=== PATIENT | male | born 1955 | race Caucasian/White ===

== ENCOUNTER 2020-12-24 17:39 | Inpatient (IN) ==
[2020-12-24] MEDS ORDERED: MORPHINE 4 MG/1 ML VIAL IV PRN (20:47)
[2020-12-24] MEDS ORDERED: DEXTROSE 50% 25 GM/50 ML VIAL IV PRN ×2 (20:47)
[2020-12-24] MEDS ORDERED: GLUCAGON 1 MG VIAL IM PRN ×2 (20:47)
[2020-12-24] MEDS ORDERED: ACETAMINOPHEN 325 MG TABLET PO PRN (20:47)
[2020-12-24] MEDS ORDERED: ONDANSETRON 4 MG/2 ML VIAL IV PRN (20:47)
[2020-12-24] MEDS ORDERED: QUEtiapine 25 MG TABLET PO SCH (21:00)
[2020-12-24] MEDS: SPIRONOLACTONE 25 MG TABLET PO SCH (21:43)
[2020-12-24] MEDS: GABAPENTIN 400 MG CAPSULE PO SCH (21:43)
[2020-12-24] MEDS: INSULIN REGULAR 100 UNIT/ML SUBCUT SCH (22:20)
[2020-12-25] MEDS: PIPERACILLIN/TAZOBACTAM 3,375 MG in SODIUM CHLORIDE 0.9% 100 ML IV SCH ×2 (00:48→09:20)
[2020-12-25 07:13] LABS: Basophils % 0.5 % (0.0-0.8); Eosinophils # 0.3 10*3/uL (0.0-0.87); Hematocrit 33.7 VOL% (42.0-52.0); Hemoglobin 11.6 GM/DL (14.0-18.0); Immature Granulocytes % 0.3 %; Immature Granulocytes Absolute 0.02 #; Lymphocytes # 0.8 10*3/uL (1.4-4.0); Lymphocytes % 13.6 % (21.2-54.2); Mean Corpuscular HGB Conc 34.4 GM/DL (32-36); Mean Corpuscular Volume 93.6 FL (87-102); Mean Platelet Volume 9.4 FL (9.6-12.0); Neutrophils % 73.6 % (38.7-73.9); Platelet Count 169 T/CUMM (130-400); Red Cell Distribution Width 12.9 % (9.3-17.3)
[2020-12-25 07:41] LABS: Albumin 2.7 G/DL (3.4-5.0); Bilirubin,Total 1.4 MG/DL (0.2-1.0); Calcium 8.3 MG/DL (8.5-10.1); Osmolality,Calculated 271.4 MOS/KG (273-304); Potassium 3.8 MMOL/L (3.5-5.1); Total Protein 6.8 G/DL (6.4-8.2)
[2020-12-25] MEDS ORDERED: PANTOPRAZOLE 40 MG TABLET PO SCH (09:00)
[2020-12-25] MEDS ORDERED: FUROSEMIDE 40 MG TABLET PO SCH (09:00)
[2020-12-25] MEDS ORDERED: SERTRALINE 50 MG TABLET PO SCH (09:00)
[2020-12-25] MEDS: INSULIN REGULAR 100 UNIT/ML SUBCUT SCH ×2 (09:19→12:04)
[2020-12-25] MEDS: GABAPENTIN 400 MG CAPSULE PO SCH (09:20)
[2020-12-25] MEDS: SPIRONOLACTONE 25 MG TABLET PO SCH (09:20)
[2020-12-25 11:33] VITALS: BP 135/95
[2020-12-25] MEDS ORDERED: ENOXAPARIN 40 MG/0.4 ML SYRINGE SUBCUT SCH (21:00)
== END 2020-12-25 14:25 | disposition home or self-care (01) | DRG 300 ==
LOC: N.3E 19:18
PROVIDERS: ADMIT Internal Medicine; ATTEND Internal Medicine

== ENCOUNTER 2021-02-09 15:08 | Inpatient (IN) ==
[2021-02-09] MEDS ORDERED: BISACODYL 5 MG TABLET PO PRN (15:59)
[2021-02-09] MEDS ORDERED: DEXTROSE 50% 25 GM/50 ML VIAL IV PRN (15:59)
[2021-02-09] MEDS ORDERED: GLUCAGON 1 MG VIAL IM PRN (15:59)
[2021-02-09] MEDS ORDERED: ONDANSETRON 4 MG/2 ML VIAL IV PRN (15:59)
[2021-02-09] MEDS ORDERED: HYDROmorphone 2 MG/1 ML VIAL IV PRN ×2 (15:59)
[2021-02-09] MEDS ORDERED: ALBUTEROL/IPRATROPIUM 3 ML NEB RESP TX PRN (15:59)
[2021-02-09] MEDS ORDERED: VANCOMYCIN INJ 1,000 MG in SODIUM CHLORIDE 0.9% 500 ML IV SCH (16:00)
[2021-02-09 16:51] LABS: Basophils % 0.5 % (0.0-0.8); Eosinophils # 0.2 10*3/uL (0.0-0.87); Eosinophils % 2.2 % (0.00-10.9); Hematocrit 30.3 VOL% (42.0-52.0); Hemoglobin 10.7 GM/DL (14.0-18.0); Immature Granulocytes % 0.7 %; Immature Granulocytes Absolute 0.05 #; Lymphocytes % 12.6 % (21.2-54.2); Mean Corpuscular HGB Conc 35.3 GM/DL (32-36); Mean Corpuscular Volume 87.6 FL (87-102); Mean Platelet Volume 8.7 FL (9.6-12.0); Monocytes % 6.4 % (1.7-12.7); Neutrophils % 77.6 % (38.7-73.9); Platelet Count 243 T/CUMM (130-400); Red Blood Count 3.46 MC/CUMM (3.8-5.5); Red Cell Distribution Width 13.4 % (9.3-17.3); White Blood Count 7.6 T/CUMM (4-12)
[2021-02-09 17:15] LABS: Calcium 8.3 MG/DL (8.5-10.1); Osmolality,Calculated 273.2 MOS/KG (273-304)
[2021-02-09 17:21] LABS: Potassium 2.1 MMOL/L (3.5-5.1)
[2021-02-09] MEDS ORDERED: POTASSIUM CHLORIDE 20 MEQ TABLET PO ONE ×2 (17:52→22:29)
[2021-02-09] MEDS: LACTATED RINGERS 1,000 ML IV SCH (18:02)
[2021-02-09] MEDS: PIPERACILLIN/TAZOBACTAM 3,375 MG in SODIUM CHLORIDE 0.9% 100 ML IV SCH ×2 (18:02→23:58)
[2021-02-09] MEDS: INSULIN LISPRO 100 UNIT/ML SUBCUT SCH (18:02)
[2021-02-09] MEDS: VANCOMYCIN INJ 2,000 MG in SODIUM CHLORIDE 0.9% 500 ML IV SCH (21:01)
[2021-02-09] MEDS: ACETAMINOPHEN 325 MG TABLET PO PRN (21:05)
[2021-02-09] MEDS ORDERED: LOPERAMIDE 2 MG CAPSULE PO PRN (22:30)
[2021-02-09] MEDS ORDERED: LOPERAMIDE 2 MG CAPSULE PO ONE (22:30)
[2021-02-09] MEDS ORDERED: MAGNESIUM SULF RIDER 4 GM/100 ML PREMIX IV ONE (22:33)
[2021-02-10] MEDS: POTASSIUM CHLORIDE RIDER 10 MEQ/100 ML PREMIX IV SCH ×4 (00:15→03:15)
[2021-02-10] MEDS: ZINC OXIDE PASTE 113 GM TUBE TOP PRN (02:13)
[2021-02-10 06:45] LABS: Basophils % 0.6 % (0.0-0.8); Eosinophils # 0.2 10*3/uL (0.0-0.87); Eosinophils % 2.8 % (0.00-10.9); Hematocrit 30.3 VOL% (42.0-52.0); Hemoglobin 10.5 GM/DL (14.0-18.0); Immature Granulocytes % 0.6 %; Immature Granulocytes Absolute 0.04 #; Lymphocytes # 0.8 10*3/uL (1.4-4.0); Lymphocytes % 11.3 % (21.2-54.2); Mean Corpuscular HGB Conc 34.7 GM/DL (32-36); Mean Corpuscular Volume 88.1 FL (87-102); Mean Platelet Volume 8.6 FL (9.6-12.0); Monocytes % 5.2 % (1.7-12.7); Neutrophils % 79.5 % (38.7-73.9); Platelet Count 217 T/CUMM (130-400); Red Blood Count 3.44 MC/CUMM (3.8-5.5); Red Cell Distribution Width 13.4 % (9.3-17.3); White Blood Count 7.1 T/CUMM (4-12)
[2021-02-10 07:18] LABS: Calcium 7.9 MG/DL (8.5-10.1); Osmolality,Calculated 281.5 MOS/KG (273-304); Potassium 3.2 MMOL/L (3.5-5.1)
[2021-02-10] MEDS: LACTATED RINGERS 1,000 ML IV SCH ×2 (07:46→12:37)
[2021-02-10] MEDS ORDERED: LIDOCAINE 1% 20 ML VIAL ONE (08:14)
[2021-02-10] MEDS ORDERED: BUPIVACAINE MPF 0.25% 30 ML VIAL ONE (08:14)
[2021-02-10] MEDS ORDERED: propofoL 200 MG/20 ML VIAL IV ONE (08:27)
[2021-02-10] MEDS ORDERED: ONDANSETRON 4 MG/2 ML VIAL ONE (08:27)
[2021-02-10] MEDS ORDERED: LIDOCAINE 2% 5 ML VIAL ONE (08:27)
[2021-02-10] MEDS ORDERED: DEXMEDETOMIDINE 200 MCG/2 ML VIAL ONE (08:27)
[2021-02-10] MEDS ORDERED: MIDAZOLAM 2 MG/2 ML VIAL ONE (08:28)
[2021-02-10] MEDS ORDERED: KETOROLAC 30 MG/1 ML VIAL ONE (09:06)
[2021-02-10] MEDS ORDERED: ACETAMINOPHEN INJ 1,000 MG/100 ML VIAL IV ONE (09:06)
[2021-02-10] MEDS: INSULIN LISPRO 100 UNIT/ML SUBCUT SCH ×3 (09:10→17:11)
[2021-02-10] MEDS: VANCOMYCIN INJ 2,000 MG in SODIUM CHLORIDE 0.9% 500 ML IV SCH ×2 (12:36→22:36)
[2021-02-10] MEDS: PIPERACILLIN/TAZOBACTAM 3,375 MG in SODIUM CHLORIDE 0.9% 100 ML IV SCH ×2 (12:36→17:11)
[2021-02-10] MEDS: POTASSIUM CHLORIDE 20 MEQ TABLET PO PRN ×3 (14:53→22:36)
[2021-02-10] MEDS: PANTOPRAZOLE 40 MG TABLET PO SCH (14:53)
[2021-02-10] MEDS: GABAPENTIN 400 MG CAPSULE PO SCH ×2 (14:53→21:19)
[2021-02-10] MEDS: MENTHOL/ZINC OXIDE OINT 71 GM JAR TOP SCH (19:14)
[2021-02-10 21:00] LABS: ABG Base Excess -1.9 MMOL/L (-2.5-2.5); ABG HCO3 22.7 MMOL/L (20-26); ABG Oxygen Saturation 91.9 % (95-100); ABG PCO2 51.1 MM HG (35-48); ABG PO2 67.3 MM HG (80-95); ABG TCO2 22.7 MMOL/L (23-27)
[2021-02-10] MEDS ORDERED: FUROSEMIDE 40 MG/4 ML VIAL IV ONE ×2 (21:09→21:12)
[2021-02-10] MEDS ORDERED: IPRATROPIUM 500 MCG/2.5 ML NEB RESP TX PRN (21:11)
[2021-02-10] MEDS: SPIRONOLACTONE 25 MG TABLET PO SCH (21:19)
[2021-02-10 21:54] LABS: Calcium 7.9 MG/DL (8.5-10.1); Osmolality,Calculated 281.5 MOS/KG (273-304); Potassium 3.8 MMOL/L (3.5-5.1)
[2021-02-11] MEDS: MENTHOL/ZINC OXIDE OINT 71 GM JAR TOP SCH ×3 (00:05→21:02)
[2021-02-11] MEDS: PIPERACILLIN/TAZOBACTAM 3,375 MG in SODIUM CHLORIDE 0.9% 100 ML IV SCH ×3 (01:16→15:09)
[2021-02-11] MEDS: GABAPENTIN 400 MG CAPSULE PO SCH ×3 (09:55→21:02)
[2021-02-11] MEDS: FUROSEMIDE 40 MG TABLET PO SCH (09:55)
[2021-02-11] MEDS: SPIRONOLACTONE 25 MG TABLET PO SCH ×2 (09:55→21:02)
[2021-02-11] MEDS: PANTOPRAZOLE 40 MG TABLET PO SCH (09:55)
[2021-02-11] MEDS: VANCOMYCIN INJ 2,000 MG in SODIUM CHLORIDE 0.9% 500 ML IV SCH (09:56)
[2021-02-11] MEDS: ZINC OXIDE PASTE 113 GM TUBE TOP PRN (10:00)
[2021-02-11] MEDS: INSULIN LISPRO 100 UNIT/ML SUBCUT SCH ×4 (10:01→17:39)
[2021-02-11 15:08] LABS: ABG Base Excess -0.1 MMOL/L (-2.5-2.5); ABG HCO3 24.3 MMOL/L (20-26); ABG Oxygen Saturation 98.3 % (95-100); ABG PCO2 46.4 MM HG (35-48); ABG PH 7.353 (7.35-7.45); ABG TCO2 23.3 MMOL/L (23-27); Allen Test Positive; Pt O2 Delivery Device BIPAP
[2021-02-11] MEDS ORDERED: FUROSEMIDE 40 MG/4 ML VIAL IV ONE (15:09)
[2021-02-11] MEDS: methylPREDNISolone SOD SUC 40 MG/1 ML VIAL IV SCH (15:11)
[2021-02-11] MEDS ORDERED: [UNRECOGNIZED DRUG - OTHER] SUBCUT SCH (17:00)
[2021-02-11] MEDS ORDERED: INSULIN ASPART U 100 UNIT/ML SUBCUT SCH (17:00)
[2021-02-11 17:50] LABS: Basophils % 0.3 % (0.0-0.8); Eosinophils # 0.1 10*3/uL (0.0-0.87); Eosinophils % 1.3 % (0.00-10.9); Hematocrit 31.8 VOL% (42.0-52.0); Hemoglobin 10.6 GM/DL (14.0-18.0); Immature Granulocytes % 0.3 %; Immature Granulocytes Absolute 0.03 #; Lymphocytes # 0.4 10*3/uL (1.4-4.0); Lymphocytes % 4.3 % (21.2-54.2); Mean Corpuscular HGB Conc 33.3 GM/DL (32-36); Mean Corpuscular Volume 90.9 FL (87-102); Mean Platelet Volume 8.7 FL (9.6-12.0); Neutrophils % 90.8 % (38.7-73.9); Platelet Count 254 T/CUMM (130-400); Red Cell Distribution Width 13.9 % (9.3-17.3); White Blood Count 9.8 T/CUMM (4-12)
[2021-02-11 18:04] LABS: Albumin 2.8 G/DL (3.4-5.0); Calcium 7.9 MG/DL (8.5-10.1); High Sensitive Troponin I* 47.7 ng/L (0-78); Osmolality,Calculated 281.5 MOS/KG (273-304); Potassium 3.6 MMOL/L (3.5-5.1)
[2021-02-11 18:56] LABS: Lymphocytes 4 % (20-55); Segmented Neutrophils 93 % (50-85); Total Cells Counted 100
[2021-02-12] MEDS: methylPREDNISolone SOD SUC 40 MG/1 ML VIAL IV SCH ×4 (00:30→22:58)
[2021-02-12] MEDS: PIPERACILLIN/TAZOBACTAM 3,375 MG in SODIUM CHLORIDE 0.9% 100 ML IV SCH ×4 (00:43→23:20)
[2021-02-12] MEDS: LACTATED RINGERS 1,000 ML IV SCH (06:25)
[2021-02-12 06:28] LABS: Basophils % 0.1 % (0.0-0.8); Hemoglobin 10.1 GM/DL (14.0-18.0); Immature Granulocytes % 0.6 %; Immature Granulocytes Absolute 0.04 #; Lymphocytes # 0.4 10*3/uL (1.4-4.0); Lymphocytes % 5.9 % (21.2-54.2); Mean Corpuscular HGB Conc 33.7 GM/DL (32-36); Mean Platelet Volume 8.9 FL (9.6-12.0); Monocytes % 1.5 % (1.7-12.7); Neutrophils % 91.9 % (38.7-73.9); Platelet Count 208 T/CUMM (130-400); Red Blood Count 3.26 MC/CUMM (3.8-5.5); Red Cell Distribution Width 13.6 % (9.3-17.3); White Blood Count 7.3 T/CUMM (4-12)
[2021-02-12 06:46] LABS: Osmolality,Calculated 285.4 MOS/KG (273-304); Potassium 3.6 MMOL/L (3.5-5.1)
[2021-02-12 06:52] LABS: Band Neutrophils 1 % (0-10); Hypochromasia Slight; Lymphocytes 8 % (20-55); Microcytosis 1+; Platelet Estimate Normal; Segmented Neutrophils 89 % (50-85); Total Cells Counted 100
[2021-02-12] MEDS ORDERED: MAGNESIUM SULF RIDER 4 GM/100 ML PREMIX IV ONE (07:42)
[2021-02-12] MEDS: SPIRONOLACTONE 25 MG TABLET PO SCH ×2 (08:18→20:48)
[2021-02-12] MEDS: PANTOPRAZOLE 40 MG TABLET PO SCH (08:19)
[2021-02-12] MEDS: GABAPENTIN 400 MG CAPSULE PO SCH ×3 (08:19→20:49)
[2021-02-12] MEDS: INSULIN LISPRO 100 UNIT/ML SUBCUT SCH ×4 (08:20→17:11)
[2021-02-12] MEDS: FUROSEMIDE 40 MG/4 ML VIAL IV SCH ×2 (08:26→16:34)
[2021-02-12] MEDS: FUROSEMIDE 40 MG TABLET PO SCH (08:28)
[2021-02-12] MEDS: VANCOMYCIN INJ 2,000 MG in SODIUM CHLORIDE 0.9% 500 ML IV SCH (11:04)
[2021-02-12] MEDS: MENTHOL/ZINC OXIDE OINT 71 GM JAR TOP SCH ×2 (11:25→21:07)
[2021-02-12] MEDS: ENOXAPARIN 40 MG/0.4 ML SYRINGE SUBCUT SCH (13:05)
[2021-02-13 05:32] LABS: Basophils % 0.1 % (0.0-0.8); Hematocrit 29.4 VOL% (42.0-52.0); Hemoglobin 10.3 GM/DL (14.0-18.0); Immature Granulocytes % 0.6 %; Immature Granulocytes Absolute 0.05 #; Lymphocytes # 0.4 10*3/uL (1.4-4.0); Mean Corpuscular Volume 90.2 FL (87-102); Monocytes % 2.3 % (1.7-12.7); Platelet Count 187 T/CUMM (130-400); Red Blood Count 3.26 MC/CUMM (3.8-5.5); Red Cell Distribution Width 13.3 % (9.3-17.3); White Blood Count 7.8 T/CUMM (4-12)
[2021-02-13 05:53] LABS: Calcium 8.3 MG/DL (8.5-10.1); Potassium 3.2 MMOL/L (3.5-5.1)
[2021-02-13 06:34] LABS: Hypochromasia Slight; Lymphocytes 4 % (20-55); Microcytosis 1+; Platelet Estimate Adequate; Segmented Neutrophils 91 % (50-85); Total Cells Counted 100
[2021-02-13] MEDS: methylPREDNISolone SOD SUC 40 MG/1 ML VIAL IV SCH ×3 (07:50→20:38)
[2021-02-13] MEDS: PIPERACILLIN/TAZOBACTAM 3,375 MG in SODIUM CHLORIDE 0.9% 100 ML IV SCH ×3 (08:25→23:31)
[2021-02-13] MEDS: PANTOPRAZOLE 40 MG TABLET PO SCH (08:25)
[2021-02-13] MEDS: GABAPENTIN 400 MG CAPSULE PO SCH ×3 (08:25→20:37)
[2021-02-13] MEDS: POTASSIUM CHLORIDE 20 MEQ TABLET PO SCH ×5 (08:25→23:32)
[2021-02-13] MEDS: SPIRONOLACTONE 25 MG TABLET PO SCH ×2 (08:25→20:37)
[2021-02-13] MEDS: FUROSEMIDE 40 MG/4 ML VIAL IV SCH (08:30)
[2021-02-13] MEDS: INSULIN LISPRO 100 UNIT/ML SUBCUT SCH ×5 (08:32→18:30)
[2021-02-13] MEDS: FUROSEMIDE 40 MG TABLET PO SCH (08:33)
[2021-02-13] MEDS: VANCOMYCIN INJ 2,000 MG in SODIUM CHLORIDE 0.9% 500 ML IV SCH (12:08)
[2021-02-13] MEDS: ENOXAPARIN 40 MG/0.4 ML SYRINGE SUBCUT SCH (12:09)
[2021-02-13] MEDS: MENTHOL/ZINC OXIDE OINT 71 GM JAR TOP SCH ×2 (12:10→20:37)
[2021-02-14] MEDS: ACETAMINOPHEN 325 MG TABLET PO PRN (04:00)
[2021-02-14 06:56] LABS: Calcium 8.3 MG/DL (8.5-10.1); Osmolality,Calculated 289.4 MOS/KG (273-304); Potassium 3.6 MMOL/L (3.5-5.1)
[2021-02-14] MEDS: INSULIN LISPRO 100 UNIT/ML SUBCUT SCH ×3 (09:08→12:32)
[2021-02-14] MEDS: PANTOPRAZOLE 40 MG TABLET PO SCH (09:09)
[2021-02-14] MEDS: FUROSEMIDE 40 MG TABLET PO SCH (09:09)
[2021-02-14] MEDS: GABAPENTIN 400 MG CAPSULE PO SCH (09:09)
[2021-02-14] MEDS: MENTHOL/ZINC OXIDE OINT 71 GM JAR TOP SCH (09:10)
[2021-02-14] MEDS: methylPREDNISolone SOD SUC 40 MG/1 ML VIAL IV SCH (09:10)
[2021-02-14] MEDS: PIPERACILLIN/TAZOBACTAM 3,375 MG in SODIUM CHLORIDE 0.9% 100 ML IV SCH (09:13)
[2021-02-14] MEDS ORDERED: LEVOFLOXACIN 750 MG TABLET PO SCH (10:00)
[2021-02-14] MEDS: SPIRONOLACTONE 25 MG TABLET PO SCH (11:35)
[2021-02-14] MEDS: ENOXAPARIN 40 MG/0.4 ML SYRINGE SUBCUT SCH (11:36)
[2021-02-14 11:58] VITALS: BP 149/75
== END 2021-02-14 14:41 | disposition home health service (06) | DRG 981 ==
LOC: N.5E 15:29 → N.ICU 02-11 14:00 → N.3E 02-13 18:05
PROVIDERS: ADMIT Surgery; ATTEND Surgery

== ENCOUNTER 2021-02-25 21:27 | Inpatient (IN) ==
[2021-02-25] MEDS ORDERED: FUROSEMIDE 40 MG/4 ML VIAL IV STA (21:40)
[2021-02-25] MEDS ORDERED: ASPIRIN 325 MG TABLET PO STA (21:40)
[2021-02-25 21:58] LABS: Basophils # 0.1 10*3/uL (0.0-0.2); Basophils % 0.4 % (0.0-0.8); Eosinophils # 0.1 10*3/uL (0.0-0.87); Eosinophils % 0.7 % (0.00-10.9); Hematocrit 32.1 VOL% (42.0-52.0); Immature Granulocytes % 0.7 %; Immature Granulocytes Absolute 0.09 #; Lymphocytes # 0.6 10*3/uL (1.4-4.0); Lymphocytes % 4.3 % (21.2-54.2); Mean Corpuscular HGB Conc 34.3 GM/DL (32-36); Mean Corpuscular Volume 89.4 FL (87-102); Mean Platelet Volume 9.2 FL (9.6-12.0); Monocytes % 5.5 % (1.7-12.7); Neutrophils % 88.4 % (38.7-73.9); Platelet Count 140 T/CUMM (130-400); Red Blood Count 3.59 MC/CUMM (3.8-5.5); Red Cell Distribution Width 14.4 % (9.3-17.3); White Blood Count 13.8 T/CUMM (4-12)
[2021-02-25 22:09] LABS: INR 1.1; PT Patient Result 12.2 SECS (10.5-12.0)
[2021-02-25 22:17] LABS: Eosinophils 3 % (0-10); Lymphocytes 11 % (20-55); Platelet Estimate Normal; Segmented Neutrophils 81 % (50-85); Total Cells Counted 100
[2021-02-25 22:20] LABS: Albumin 2.6 G/DL (3.4-5.0); Bilirubin,Total 1.5 MG/DL (0.2-1.0); Calcium 6.9 MG/DL (8.5-10.1); Osmolality,Calculated 274.7 MOS/KG (273-304); Potassium 2.6 MMOL/L (3.5-5.1); Total Protein 6.3 G/DL (6.4-8.2)
[2021-02-25] MEDS ORDERED: POTASSIUM CHLORIDE 20 MEQ TABLET PO STA (22:27)
[2021-02-25] MEDS ORDERED: MAGNESIUM SULF RIDER 4 GM/100 ML PREMIX IV PRN (22:45)
[2021-02-25] MEDS ORDERED: POTASSIUM CHLORIDE RIDER 10 MEQ/100 ML PREMIX IV PRN (22:45)
[2021-02-25] MEDS ORDERED: hydrALAZINE 20 MG/1 ML VIAL IV PRN (22:47)
[2021-02-25] MEDS ORDERED: MORPHINE 4 MG/1 ML VIAL IV PRN (22:47)
[2021-02-25] MEDS ORDERED: ZALEPLON 5 MG CAPSULE PO PRN (22:47)
[2021-02-25] MEDS ORDERED: ONDANSETRON 4 MG/2 ML VIAL IV PRN (22:47)
[2021-02-25] MEDS ORDERED: NICOTINE 21 MG/24 HR PATCH TRANSDERM PRN (22:47)
[2021-02-25] MEDS ORDERED: BISACODYL 5 MG TABLET PO PRN (22:47)
[2021-02-25] MEDS ORDERED: ACETAMINOPHEN 325 MG TABLET PO PRN (22:47)
[2021-02-25] MEDS ORDERED: DEXTROSE 50% 25 GM/50 ML VIAL IV PRN ×2 (22:47→23:00)
[2021-02-25] MEDS ORDERED: diphenhydrAMINE CAP 25 MG CAPSULE PO PRN (22:47)
[2021-02-25] MEDS ORDERED: GLUCAGON 1 MG VIAL IM PRN ×2 (22:47→23:00)
[2021-02-26] MEDS: ALBUTEROL/IPRATROPIUM 3 ML NEB RESP TX SCH ×3 (00:05→21:40)
[2021-02-26 05:12] LABS: Basophils # 0.1 10*3/uL (0.0-0.2); Basophils % 0.7 % (0.0-0.8); Eosinophils % 0.2 % (0.00-10.9); Hematocrit 28.7 VOL% (42.0-52.0); Hemoglobin 9.8 GM/DL (14.0-18.0); Immature Granulocytes % 0.5 %; Immature Granulocytes Absolute 0.05 #; Lymphocytes # 0.8 10*3/uL (1.4-4.0); Lymphocytes % 7.7 % (21.2-54.2); Mean Corpuscular HGB Conc 34.1 GM/DL (32-36); Mean Corpuscular Volume 90.3 FL (87-102); Mean Platelet Volume 9.9 FL (9.6-12.0); Monocytes % 7.3 % (1.7-12.7); Neutrophils % 83.6 % (38.7-73.9); Platelet Count 131 T/CUMM (130-400); Red Blood Count 3.18 MC/CUMM (3.8-5.5); Red Cell Distribution Width 14.5 % (9.3-17.3); White Blood Count 10.3 T/CUMM (4-12)
[2021-02-26 05:45] LABS: Hypochromasia 1+; Microcytosis 1+
[2021-02-26 05:50] LABS: Calcium 6.7 MG/DL (8.5-10.1); Osmolality,Calculated 276.7 MOS/KG (273-304); Potassium 2.6 MMOL/L (3.5-5.1)
[2021-02-26] MEDS: ENOXAPARIN 40 MG/0.4 ML SYRINGE SUBCUT SCH (09:35)
[2021-02-26] MEDS: PANTOPRAZOLE 40 MG TABLET PO SCH (09:35)
[2021-02-26] MEDS: POTASSIUM CHLORIDE 20 MEQ TABLET PO PRN (09:35)
[2021-02-26] MEDS: INSULIN LISPRO 100 UNIT/ML SUBCUT SCH ×4 (09:37→20:16)
[2021-02-26] MEDS: FUROSEMIDE 40 MG/4 ML VIAL IV SCH ×2 (09:37→16:27)
[2021-02-26] MEDS: SPIRONOLACTONE 25 MG TABLET PO SCH (10:00)
[2021-02-26] MEDS: POTASSIUM CHLORIDE 20 MEQ TABLET PO SCH ×3 (14:00→18:23)
[2021-02-27] MEDS: ALBUTEROL/IPRATROPIUM 3 ML NEB RESP TX SCH ×4 (02:36→19:25)
[2021-02-27 05:34] LABS: Osmolality,Calculated 273.2 MOS/KG (273-304); Potassium 3.1 MMOL/L (3.5-5.1)
[2021-02-27] MEDS: INSULIN LISPRO 100 UNIT/ML SUBCUT SCH ×4 (08:10→20:15)
[2021-02-27] MEDS: FUROSEMIDE 40 MG/4 ML VIAL IV SCH ×2 (10:46→17:24)
[2021-02-27] MEDS: ENOXAPARIN 40 MG/0.4 ML SYRINGE SUBCUT SCH (10:47)
[2021-02-27] MEDS: SPIRONOLACTONE 25 MG TABLET PO SCH (10:48)
[2021-02-27] MEDS: PANTOPRAZOLE 40 MG TABLET PO SCH (10:48)
[2021-02-27] MEDS: POTASSIUM CHLORIDE 20 MEQ TABLET PO SCH ×3 (11:10→20:15)
[2021-02-27] MEDS: MAGNESIUM OXIDE 400 MG TABLET PO SCH ×2 (17:23→20:14)
[2021-02-27 19:29] LABS: Bilirubin,Urine Negative (Negative); Blood, Urine Small mg/dL (Negative); Glucose,Urine (UA) Negative (Negative); Hyaline Casts,Urine 1 /LPF (0-3); Ketones,Urine Negative (Negative); Mucus,Urine Occasional /LPF (Occasional); Nitrite,Urine Negative (Negative); Protein,Urine Negative; RBC,Urine 1 /HPF (0-4); Squamous Epithelial Cell,Urine Occasional /HPF (0-10); Urine Appearance CLEAR (Clear); Urine Color Yellow (Yellow); Urine Specific Gravity 1.013 (1.001-1.035); Urine Urobilinogen < 2.0 EU/DL (0.2-1.0)
[2021-02-28] MEDS: ALBUTEROL/IPRATROPIUM 3 ML NEB RESP TX SCH ×3 (03:19→14:19)
[2021-02-28 05:08] LABS: Osmolality,Calculated 266.7 MOS/KG (273-304); Potassium 3.3 MMOL/L (3.5-5.1)
[2021-02-28] MEDS: INSULIN LISPRO 100 UNIT/ML SUBCUT SCH ×4 (09:30→21:43)
[2021-02-28] MEDS: FUROSEMIDE 40 MG/4 ML VIAL IV SCH ×3 (09:31→18:01)
[2021-02-28] MEDS: PANTOPRAZOLE 40 MG TABLET PO SCH (09:31)
[2021-02-28] MEDS: MAGNESIUM OXIDE 400 MG TABLET PO SCH ×3 (09:31→21:44)
[2021-02-28] MEDS: ENOXAPARIN 40 MG/0.4 ML SYRINGE SUBCUT SCH (09:31)
[2021-02-28] MEDS: SPIRONOLACTONE 25 MG TABLET PO SCH (09:31)
[2021-02-28] MEDS ORDERED: ALBUTEROL/IPRATROPIUM 3 ML NEB RESP TX PRN (16:28)
[2021-02-28] MEDS ORDERED: SKIN HEALING OINT (AQUAPHOR) 50 GM TUBE TOP PRN (16:46)
[2021-02-28] MEDS: MENTHOL/ZINC OXIDE OINT 71 GM JAR TOP SCH ×2 (18:02→21:44)
[2021-02-28] MEDS: SODIUM HYPOCHLORITE 0.25% IRRIG 473 ML BOTTLE TOP SCH ×2 (18:02→22:53)
[2021-02-28] MEDS: POTASSIUM CHLORIDE 20 MEQ TABLET PO PRN (21:44)
[2021-03-01 05:17] LABS: Basophils # 0.1 10*3/uL (0.0-0.2); Basophils % 1.2 % (0.0-0.8); Eosinophils # 0.3 10*3/uL (0.0-0.87); Eosinophils % 4.3 % (0.00-10.9); Hemoglobin 9.9 GM/DL (14.0-18.0); Immature Granulocytes % 0.4 %; Immature Granulocytes Absolute 0.03 #; Lymphocytes # 0.8 10*3/uL (1.4-4.0); Lymphocytes % 12.3 % (21.2-54.2); Mean Corpuscular Volume 92.3 FL (87-102); Mean Platelet Volume 9.7 FL (9.6-12.0); Monocytes % 5.6 % (1.7-12.7); Neutrophils % 76.2 % (38.7-73.9); Platelet Count 184 T/CUMM (130-400); Red Blood Count 3.25 MC/CUMM (3.8-5.5); Red Cell Distribution Width 14.4 % (9.3-17.3); White Blood Count 6.8 T/CUMM (4-12)
[2021-03-01 05:31] LABS: Calcium 7.2 MG/DL (8.5-10.1); Potassium 3.3 MMOL/L (3.5-5.1)
[2021-03-01 05:36] LABS: Eosinophils 4 % (0-10); Hypochromasia 1+; Lymphocytes 12 % (20-55); Microcytosis 1+; Platelet Estimate Adequate; Segmented Neutrophils 80 % (50-85); Total Cells Counted 100
[2021-03-01] MEDS: MAGNESIUM OXIDE 400 MG TABLET PO SCH ×3 (10:10→22:41)
[2021-03-01] MEDS: SPIRONOLACTONE 25 MG TABLET PO SCH (10:10)
[2021-03-01] MEDS: POTASSIUM CHLORIDE 20 MEQ TABLET PO PRN (10:10)
[2021-03-01] MEDS: PANTOPRAZOLE 40 MG TABLET PO SCH (10:10)
[2021-03-01] MEDS: INSULIN LISPRO 100 UNIT/ML SUBCUT SCH ×4 (10:10→22:58)
[2021-03-01] MEDS: ENOXAPARIN 40 MG/0.4 ML SYRINGE SUBCUT SCH (10:11)
[2021-03-01] MEDS: SODIUM HYPOCHLORITE 0.25% IRRIG 473 ML BOTTLE TOP SCH ×2 (10:11→22:59)
[2021-03-01] MEDS: FUROSEMIDE 40 MG/4 ML VIAL IV SCH ×2 (10:11→17:55)
[2021-03-01] MEDS: MENTHOL/ZINC OXIDE OINT 71 GM JAR TOP SCH ×2 (10:12→22:58)
[2021-03-01] MEDS: guaiFENesin/DM ER 600-30 MG TABLET PO PRN ×2 (17:55→22:50)
[2021-03-02 04:33] LABS: Basophils # 0.1 10*3/uL (0.0-0.2); Basophils % 0.9 % (0.0-0.8); Eosinophils # 0.3 10*3/uL (0.0-0.87); Eosinophils % 4.1 % (0.00-10.9); Hematocrit 29.9 VOL% (42.0-52.0); Hemoglobin 10.1 GM/DL (14.0-18.0); Immature Granulocytes % 0.6 %; Immature Granulocytes Absolute 0.04 #; Lymphocytes # 0.8 10*3/uL (1.4-4.0); Lymphocytes % 11.5 % (21.2-54.2); Mean Corpuscular HGB Conc 33.8 GM/DL (32-36); Mean Corpuscular Volume 90.9 FL (87-102); Mean Platelet Volume 9.2 FL (9.6-12.0); Monocytes % 6.4 % (1.7-12.7); Neutrophils % 76.5 % (38.7-73.9); Platelet Count 179 T/CUMM (130-400); Red Blood Count 3.29 MC/CUMM (3.8-5.5); Red Cell Distribution Width 14.2 % (9.3-17.3)
[2021-03-02 04:59] LABS: Eosinophils 3 % (0-10); Hypochromasia Slight; Lymphocytes 16 % (20-55); Microcytosis Slight; Platelet Estimate Adequate; Segmented Neutrophils 74 % (50-85); Total Cells Counted 100
[2021-03-02 05:09] LABS: Calcium 7.3 MG/DL (8.5-10.1); Potassium 3.4 MMOL/L (3.5-5.1)
[2021-03-02] MEDS: MAGNESIUM OXIDE 400 MG TABLET PO SCH ×3 (09:56→22:58)
[2021-03-02] MEDS: SPIRONOLACTONE 25 MG TABLET PO SCH (09:56)
[2021-03-02] MEDS: POTASSIUM CHLORIDE 20 MEQ TABLET PO PRN ×3 (09:56→16:05)
[2021-03-02] MEDS: PANTOPRAZOLE 40 MG TABLET PO SCH (09:56)
[2021-03-02] MEDS: ENOXAPARIN 40 MG/0.4 ML SYRINGE SUBCUT SCH (09:56)
[2021-03-02] MEDS: MENTHOL/ZINC OXIDE OINT 71 GM JAR TOP SCH ×2 (09:57→22:57)
[2021-03-02] MEDS: SODIUM HYPOCHLORITE 0.25% IRRIG 473 ML BOTTLE TOP SCH ×2 (09:57→22:59)
[2021-03-02] MEDS: FUROSEMIDE 40 MG/4 ML VIAL IV SCH ×2 (10:06→16:05)
[2021-03-02] MEDS: INSULIN LISPRO 100 UNIT/ML SUBCUT SCH ×4 (11:42→22:59)
[2021-03-02] MEDS: MAGNESIUM SULF RIDER 2 GM/50 ML PREMIX IV PRN (13:57)
[2021-03-02] MEDS: GABAPENTIN 400 MG CAPSULE PO SCH (22:58)
[2021-03-03] MEDS: INSULIN LISPRO 100 UNIT/ML SUBCUT SCH ×4 (08:32→20:50)
[2021-03-03] MEDS: PANTOPRAZOLE 40 MG TABLET PO SCH (10:43)
[2021-03-03] MEDS: GABAPENTIN 400 MG CAPSULE PO SCH ×3 (10:43→20:49)
[2021-03-03] MEDS: SPIRONOLACTONE 25 MG TABLET PO SCH (10:43)
[2021-03-03] MEDS: MAGNESIUM OXIDE 400 MG TABLET PO SCH ×3 (10:43→20:49)
[2021-03-03] MEDS: SODIUM HYPOCHLORITE 0.25% IRRIG 473 ML BOTTLE TOP SCH ×2 (10:44→20:49)
[2021-03-03] MEDS: ENOXAPARIN 40 MG/0.4 ML SYRINGE SUBCUT SCH (10:44)
[2021-03-03] MEDS: MENTHOL/ZINC OXIDE OINT 71 GM JAR TOP SCH ×2 (10:44→20:49)
[2021-03-03] MEDS: FUROSEMIDE 40 MG/4 ML VIAL IV SCH ×2 (10:47→15:12)
[2021-03-04 05:53] LABS: Calcium 7.5 MG/DL (8.5-10.1); Osmolality,Calculated 271.1 MOS/KG (273-304); Potassium 3.2 MMOL/L (3.5-5.1)
[2021-03-04] MEDS ORDERED: LIDOCAINE 1%/EPI INJ 20 ML VIAL ONE (08:19)
[2021-03-04] MEDS ORDERED: BUPIVACAINE MPF 0.25% 30 ML VIAL ONE (08:19)
[2021-03-04] MEDS: INSULIN LISPRO 100 UNIT/ML SUBCUT SCH ×4 (08:26→21:56)
[2021-03-04] MEDS: SPIRONOLACTONE 25 MG TABLET PO SCH (10:02)
[2021-03-04] MEDS: PANTOPRAZOLE 40 MG TABLET PO SCH (10:02)
[2021-03-04] MEDS: GABAPENTIN 400 MG CAPSULE PO SCH ×3 (10:02→21:50)
[2021-03-04] MEDS: MAGNESIUM OXIDE 400 MG TABLET PO SCH ×3 (10:02→21:50)
[2021-03-04] MEDS: ENOXAPARIN 40 MG/0.4 ML SYRINGE SUBCUT SCH (10:03)
[2021-03-04] MEDS: MENTHOL/ZINC OXIDE OINT 71 GM JAR TOP SCH ×2 (10:12→21:55)
[2021-03-04] MEDS: SODIUM HYPOCHLORITE 0.25% IRRIG 473 ML BOTTLE TOP SCH ×2 (10:12→21:55)
[2021-03-04] MEDS: FUROSEMIDE 40 MG/4 ML VIAL IV SCH ×2 (10:12→15:49)
[2021-03-04] MEDS: MAGNESIUM SULF RIDER 2 GM/50 ML PREMIX IV PRN (10:13)
[2021-03-04] MEDS ORDERED: DEXTROSE 50% 25 GM/50 ML VIAL IV PRN (13:23)
[2021-03-04] MEDS: POTASSIUM CHLORIDE 20 MEQ TABLET PO PRN (15:45)
[2021-03-05 04:58] LABS: Basophils # 0.1 10*3/uL (0.0-0.2); Basophils % 0.7 % (0.0-0.8); Eosinophils # 0.4 10*3/uL (0.0-0.87); Eosinophils % 5.1 % (0.00-10.9); Hematocrit 30.1 VOL% (42.0-52.0); Hemoglobin 9.7 GM/DL (14.0-18.0); Immature Granulocytes % 0.7 %; Immature Granulocytes Absolute 0.05 #; Lymphocytes # 1.1 10*3/uL (1.4-4.0); Lymphocytes % 15.3 % (21.2-54.2); Mean Corpuscular HGB Conc 32.2 GM/DL (32-36); Mean Corpuscular Volume 93.2 FL (87-102); Mean Platelet Volume 9.1 FL (9.6-12.0); Monocytes % 7.4 % (1.7-12.7); Neutrophils % 70.8 % (38.7-73.9); Platelet Count 188 T/CUMM (130-400); Red Blood Count 3.23 MC/CUMM (3.8-5.5); Red Cell Distribution Width 13.9 % (9.3-17.3); White Blood Count 7.2 T/CUMM (4-12)
[2021-03-05 05:41] LABS: Osmolality,Calculated 270.2 MOS/KG (273-304); Potassium 3.3 MMOL/L (3.5-5.1)
[2021-03-05] MEDS: INSULIN LISPRO 100 UNIT/ML SUBCUT SCH ×4 (07:46→22:13)
[2021-03-05] MEDS: GABAPENTIN 400 MG CAPSULE PO SCH ×3 (08:46→22:09)
[2021-03-05] MEDS: PANTOPRAZOLE 40 MG TABLET PO SCH (08:46)
[2021-03-05] MEDS: POTASSIUM CHLORIDE 20 MEQ TABLET PO PRN ×3 (08:46→13:28)
[2021-03-05] MEDS: MAGNESIUM OXIDE 400 MG TABLET PO SCH ×3 (08:46→22:09)
[2021-03-05] MEDS: SPIRONOLACTONE 25 MG TABLET PO SCH (08:46)
[2021-03-05] MEDS: ENOXAPARIN 40 MG/0.4 ML SYRINGE SUBCUT SCH (08:47)
[2021-03-05] MEDS: MENTHOL/ZINC OXIDE OINT 71 GM JAR TOP SCH ×2 (08:51→22:19)
[2021-03-05] MEDS: SODIUM HYPOCHLORITE 0.25% IRRIG 473 ML BOTTLE TOP SCH ×2 (08:51→22:19)
[2021-03-05] MEDS: FUROSEMIDE 40 MG/4 ML VIAL IV SCH ×2 (08:51→15:06)
[2021-03-06 05:59] LABS: Basophils # 0.1 10*3/uL (0.0-0.2); Basophils % 0.6 % (0.0-0.8); Eosinophils # 0.4 10*3/uL (0.0-0.87); Eosinophils % 4.8 % (0.00-10.9); Hematocrit 29.7 VOL% (42.0-52.0); Hemoglobin 9.6 GM/DL (14.0-18.0); Immature Granulocytes % 0.5 %; Immature Granulocytes Absolute 0.04 #; Lymphocytes # 1.1 10*3/uL (1.4-4.0); Lymphocytes % 12.6 % (21.2-54.2); Mean Corpuscular HGB Conc 32.3 GM/DL (32-36); Mean Corpuscular Volume 92.2 FL (87-102); Mean Platelet Volume 8.7 FL (9.6-12.0); Monocytes % 6.9 % (1.7-12.7); Neutrophils % 74.6 % (38.7-73.9); Platelet Count 190 T/CUMM (130-400); Red Blood Count 3.22 MC/CUMM (3.8-5.5); Red Cell Distribution Width 13.7 % (9.3-17.3); White Blood Count 8.4 T/CUMM (4-12)
[2021-03-06 06:31] LABS: Calcium 7.9 MG/DL (8.5-10.1); Osmolality,Calculated 268.4 MOS/KG (273-304); Potassium 3.8 MMOL/L (3.5-5.1)
[2021-03-06] MEDS: GABAPENTIN 400 MG CAPSULE PO SCH ×3 (08:44→21:26)
[2021-03-06] MEDS: MAGNESIUM OXIDE 400 MG TABLET PO SCH ×3 (08:44→21:26)
[2021-03-06] MEDS: PANTOPRAZOLE 40 MG TABLET PO SCH (08:44)
[2021-03-06] MEDS: INSULIN LISPRO 100 UNIT/ML SUBCUT SCH ×4 (08:44→20:51)
[2021-03-06] MEDS: ENOXAPARIN 40 MG/0.4 ML SYRINGE SUBCUT SCH (08:45)
[2021-03-06] MEDS: POTASSIUM CHLORIDE 20 MEQ TABLET PO PRN (08:45)
[2021-03-06] MEDS: SPIRONOLACTONE 25 MG TABLET PO SCH (08:45)
[2021-03-06] MEDS: MENTHOL/ZINC OXIDE OINT 71 GM JAR TOP SCH ×2 (08:49→21:27)
[2021-03-06] MEDS: FUROSEMIDE 40 MG/4 ML VIAL IV SCH ×2 (08:49→16:14)
[2021-03-06] MEDS: SODIUM HYPOCHLORITE 0.25% IRRIG 473 ML BOTTLE TOP SCH ×2 (08:50→21:28)
[2021-03-07] MEDS ORDERED: BUPIVACAINE MPF 0.25% 30 ML VIAL ONE (09:27)
[2021-03-07] MEDS ORDERED: LIDOCAINE 1%/EPI INJ 20 ML VIAL ONE (09:27)
[2021-03-07] MEDS ORDERED: propofoL 200 MG/20 ML VIAL IV ONE (09:28)
[2021-03-07] MEDS ORDERED: LIDOCAINE 2% 5 ML VIAL ONE (09:28)
[2021-03-07] MEDS ORDERED: ETOMIDATE 40 MG/20 ML VIAL IV ONE (09:28)
[2021-03-07] MEDS ORDERED: MIDAZOLAM 2 MG/2 ML VIAL ONE (09:28)
[2021-03-07] MEDS ORDERED: DEXMEDETOMIDINE 200 MCG/2 ML VIAL ONE (09:28)
[2021-03-07] MEDS ORDERED: DEXAMETHASONE 4 MG/1 ML VIAL ONE (09:35)
[2021-03-07] MEDS ORDERED: ONDANSETRON 4 MG/2 ML VIAL ONE (09:35)
[2021-03-07] MEDS ORDERED: LIDOCAINE 1% 20 ML VIAL ONE (09:46)
[2021-03-07] MEDS ORDERED: KETOROLAC 30 MG/1 ML VIAL ONE (09:55)
[2021-03-07] MEDS ORDERED: ACETAMINOPHEN INJ 1,000 MG/100 ML VIAL IV ONE (09:55)
[2021-03-07] MEDS ORDERED: DEXTROSE 50% 25 GM/50 ML VIAL IV PRN (10:14)
[2021-03-07] MEDS ORDERED: PHENYLEPHRINE 1 MG/10 ML SYRINGE IV ONE (10:21)
[2021-03-07] MEDS: INSULIN LISPRO 100 UNIT/ML SUBCUT SCH ×4 (10:23→22:14)
[2021-03-07] MEDS: SODIUM HYPOCHLORITE 0.25% IRRIG 473 ML BOTTLE TOP SCH ×2 (10:24→22:02)
[2021-03-07] MEDS ORDERED: VANCOMYCIN INJ 1,000 MG in SODIUM CHLORIDE 0.9% 250 ML IV SCH (10:30)
[2021-03-07] MEDS: MAGNESIUM OXIDE 400 MG TABLET PO SCH ×3 (11:34→21:58)
[2021-03-07] MEDS: GABAPENTIN 400 MG CAPSULE PO SCH ×3 (11:34→21:59)
[2021-03-07] MEDS: FUROSEMIDE 40 MG/4 ML VIAL IV SCH ×2 (11:39→17:04)
[2021-03-07] MEDS: SPIRONOLACTONE 25 MG TABLET PO SCH ×2 (11:56→22:00)
[2021-03-07] MEDS: PANTOPRAZOLE 40 MG TABLET PO SCH (11:56)
[2021-03-07] MEDS: ENOXAPARIN 40 MG/0.4 ML SYRINGE SUBCUT SCH (12:05)
[2021-03-07] MEDS: PIPERACILLIN/TAZOBACTAM 3,375 MG in SODIUM CHLORIDE 0.9% 100 ML IV SCH ×2 (12:07→22:01)
[2021-03-07] MEDS: MENTHOL/ZINC OXIDE OINT 71 GM JAR TOP SCH ×2 (12:07→22:02)
[2021-03-07] MEDS: VANCOMYCIN INJ 1,750 MG in SODIUM CHLORIDE 0.9% 500 ML IV SCH (17:04)
[2021-03-08] MEDS: VANCOMYCIN INJ 1,750 MG in SODIUM CHLORIDE 0.9% 500 ML IV SCH (03:08)
[2021-03-08] MEDS: PIPERACILLIN/TAZOBACTAM 3,375 MG in SODIUM CHLORIDE 0.9% 100 ML IV SCH ×3 (05:18→18:25)
[2021-03-08 05:49] LABS: Calcium 8.3 MG/DL (8.5-10.1); Osmolality,Calculated 272.5 MOS/KG (273-304); Potassium 4.8 MMOL/L (3.5-5.1)
[2021-03-08] MEDS: INSULIN LISPRO 100 UNIT/ML SUBCUT SCH ×4 (10:05→22:22)
[2021-03-08] MEDS: ENOXAPARIN 40 MG/0.4 ML SYRINGE SUBCUT SCH (10:06)
[2021-03-08] MEDS: SPIRONOLACTONE 25 MG TABLET PO SCH ×2 (10:12→22:21)
[2021-03-08] MEDS: FUROSEMIDE 40 MG/4 ML VIAL IV SCH ×2 (10:12→16:55)
[2021-03-08] MEDS: MAGNESIUM OXIDE 400 MG TABLET PO SCH ×3 (10:13→22:21)
[2021-03-08] MEDS: PANTOPRAZOLE 40 MG TABLET PO SCH (10:13)
[2021-03-08] MEDS: MENTHOL/ZINC OXIDE OINT 71 GM JAR TOP SCH ×2 (10:13→22:21)
[2021-03-08] MEDS: SODIUM HYPOCHLORITE 0.25% IRRIG 473 ML BOTTLE TOP SCH ×2 (10:13→22:22)
[2021-03-08] MEDS: GABAPENTIN 400 MG CAPSULE PO SCH ×3 (10:13→22:20)
[2021-03-08] MEDS ORDERED: GENTAMICIN INJ 160 MG in SODIUM CHLORIDE 0.9% 100 ML IV SCH (10:30)
[2021-03-08] MEDS ORDERED: MORPHINE 2 MG/1 ML SYRINGE IV PRN (14:01)
[2021-03-08] MEDS: GENTAMICIN IV SCH (16:57)
[2021-03-08] MEDS: SODIUM CHLORIDE 0.9% IV SCH (16:57)
[2021-03-09] MEDS: PIPERACILLIN/TAZOBACTAM 3,375 MG in SODIUM CHLORIDE 0.9% 100 ML IV SCH ×2 (04:11→12:40)
[2021-03-09] MEDS: INSULIN LISPRO 100 UNIT/ML SUBCUT SCH ×4 (07:59→21:25)
[2021-03-09] MEDS: MAGNESIUM OXIDE 400 MG TABLET PO SCH ×3 (09:20→21:25)
[2021-03-09] MEDS: ENOXAPARIN 40 MG/0.4 ML SYRINGE SUBCUT SCH (09:21)
[2021-03-09] MEDS: PANTOPRAZOLE 40 MG TABLET PO SCH (09:21)
[2021-03-09] MEDS: GABAPENTIN 400 MG CAPSULE PO SCH ×3 (09:21→21:25)
[2021-03-09] MEDS: SPIRONOLACTONE 25 MG TABLET PO SCH ×2 (09:21→21:26)
[2021-03-09] MEDS: FUROSEMIDE 40 MG/4 ML VIAL IV SCH ×2 (09:27→16:42)
[2021-03-09] MEDS: MENTHOL/ZINC OXIDE OINT 71 GM JAR TOP SCH ×2 (09:30→21:25)
[2021-03-09] MEDS: SODIUM HYPOCHLORITE 0.25% IRRIG 473 ML BOTTLE TOP SCH ×2 (09:30→21:25)
[2021-03-09] MEDS: GENTAMICIN IV SCH (16:34)
[2021-03-09] MEDS: SODIUM CHLORIDE 0.9% IV SCH (16:34)
[2021-03-09] MEDS: MEROPENEM 500 MG in SODIUM CHLORIDE 0.9% 100 ML IV SCH ×2 (16:54→23:47)
[2021-03-09] MEDS ORDERED: TOBRAMYCIN INJ 480 MG in SODIUM CHLORIDE 0.9% 100 ML IV SCH (17:00)
[2021-03-10] MEDS: MEROPENEM 500 MG in SODIUM CHLORIDE 0.9% 100 ML IV SCH ×3 (05:55→16:45)
[2021-03-10] MEDS: INSULIN LISPRO 100 UNIT/ML SUBCUT SCH ×4 (08:13→21:49)
[2021-03-10] MEDS ORDERED: MIDAZOLAM 2 MG/2 ML VIAL ONE (08:30)
[2021-03-10] MEDS ORDERED: fentaNYL 100 MCG/2 ML VIAL ONE (08:30)
[2021-03-10] MEDS ORDERED: LIDOCAINE 2% 5 ML VIAL ONE (08:30)
[2021-03-10] MEDS ORDERED: propofoL 200 MG/20 ML VIAL IV ONE (08:31)
[2021-03-10] MEDS ORDERED: BUPIVACAINE MPF 0.25% 30 ML VIAL ONE (08:38)
[2021-03-10] MEDS ORDERED: LIDOCAINE 1%/EPI INJ 20 ML VIAL ONE (08:38)
[2021-03-10] MEDS ORDERED: ALBUTEROL/IPRATROPIUM 3 ML NEB RESP TX ONE (08:46)
[2021-03-10] MEDS ORDERED: LACTATED RINGERS 1,000 ML IV SCH (09:00)
[2021-03-10] MEDS ORDERED: LIDOCAINE 1% 20 ML VIAL ONE (09:03)
[2021-03-10] MEDS ORDERED: ETOMIDATE 40 MG/20 ML VIAL IV ONE (09:15)
[2021-03-10] MEDS: FUROSEMIDE 40 MG/4 ML VIAL IV SCH ×2 (10:48→15:27)
[2021-03-10] MEDS: GABAPENTIN 400 MG CAPSULE PO SCH ×3 (11:16→21:50)
[2021-03-10] MEDS: MAGNESIUM OXIDE 400 MG TABLET PO SCH ×3 (11:16→21:50)
[2021-03-10] MEDS: SPIRONOLACTONE 25 MG TABLET PO SCH ×2 (11:16→21:49)
[2021-03-10] MEDS: ENOXAPARIN 40 MG/0.4 ML SYRINGE SUBCUT SCH (11:17)
[2021-03-10] MEDS: PANTOPRAZOLE 40 MG TABLET PO SCH (11:17)
[2021-03-10] MEDS: SODIUM HYPOCHLORITE 0.25% IRRIG 473 ML BOTTLE TOP SCH ×2 (11:20→21:51)
[2021-03-10] MEDS: MENTHOL/ZINC OXIDE OINT 71 GM JAR TOP SCH ×2 (11:20→21:51)
[2021-03-10 13:47] LABS: Calcium 8.8 MG/DL (8.5-10.1); Osmolality,Calculated 272.2 MOS/KG (273-304); Potassium 4.8 MMOL/L (3.5-5.1)
[2021-03-10] MEDS: ZALEPLON 5 MG CAPSULE PO PRN (21:50)
[2021-03-11] MEDS: MEROPENEM 500 MG in SODIUM CHLORIDE 0.9% 100 ML IV SCH ×4 (00:09→17:00)
[2021-03-11 06:02] LABS: Basophils % 0.6 % (0.0-0.8); Eosinophils # 0.5 10*3/uL (0.0-0.87); Eosinophils % 7.6 % (0.00-10.9); Hematocrit 30.3 VOL% (42.0-52.0); Hemoglobin 9.5 GM/DL (14.0-18.0); Immature Granulocytes % 0.4 %; Immature Granulocytes Absolute 0.03 #; Lymphocytes # 0.9 10*3/uL (1.4-4.0); Mean Corpuscular HGB Conc 31.4 GM/DL (32-36); Mean Corpuscular Volume 94.7 FL (87-102); Mean Platelet Volume 8.6 FL (9.6-12.0); Neutrophils % 72.4 % (38.7-73.9); Platelet Count 254 T/CUMM (130-400); Red Cell Distribution Width 13.8 % (9.3-17.3); White Blood Count 7.2 T/CUMM (4-12)
[2021-03-11 06:45] LABS: Calcium 8.6 MG/DL (8.5-10.1); Potassium 4.1 MMOL/L (3.5-5.1)
[2021-03-11] MEDS: INSULIN LISPRO 100 UNIT/ML SUBCUT SCH ×4 (09:36→21:14)
[2021-03-11] MEDS: FUROSEMIDE 40 MG/4 ML VIAL IV SCH ×2 (09:45→16:00)
[2021-03-11] MEDS: SPIRONOLACTONE 25 MG TABLET PO SCH ×2 (09:45→21:12)
[2021-03-11] MEDS: MAGNESIUM OXIDE 400 MG TABLET PO SCH ×3 (09:46→21:11)
[2021-03-11] MEDS: GABAPENTIN 400 MG CAPSULE PO SCH ×3 (09:46→21:12)
[2021-03-11] MEDS: PANTOPRAZOLE 40 MG TABLET PO SCH (09:47)
[2021-03-11] MEDS: ENOXAPARIN 40 MG/0.4 ML SYRINGE SUBCUT SCH (09:52)
[2021-03-11] MEDS: guaiFENesin/DM ER 600-30 MG TABLET PO PRN (10:11)
[2021-03-11] MEDS: MENTHOL/ZINC OXIDE OINT 71 GM JAR TOP SCH ×2 (13:09→21:13)
[2021-03-11] MEDS: SODIUM HYPOCHLORITE 0.25% IRRIG 473 ML BOTTLE TOP SCH ×2 (13:10→21:13)
[2021-03-11] MEDS ORDERED: TOBRAMYCIN INJ 480 MG in SODIUM CHLORIDE 0.9% 100 ML IV SCH (18:00)
[2021-03-11] MEDS: ZALEPLON 5 MG CAPSULE PO PRN (21:12)
[2021-03-12] MEDS: MEROPENEM 500 MG in SODIUM CHLORIDE 0.9% 100 ML IV SCH ×5 (00:27→23:41)
[2021-03-12 04:23] LABS: Basophils % 0.5 % (0.0-0.8); Eosinophils # 0.5 10*3/uL (0.0-0.87); Eosinophils % 6.8 % (0.00-10.9); Hematocrit 30.2 VOL% (42.0-52.0); Hemoglobin 9.6 GM/DL (14.0-18.0); Immature Granulocytes % 0.6 %; Immature Granulocytes Absolute 0.05 #; Lymphocytes # 0.9 10*3/uL (1.4-4.0); Lymphocytes % 11.1 % (21.2-54.2); Mean Corpuscular HGB Conc 31.8 GM/DL (32-36); Mean Corpuscular Volume 93.8 FL (87-102); Mean Platelet Volume 8.8 FL (9.6-12.0); Monocytes % 6.2 % (1.7-12.7); Neutrophils % 74.8 % (38.7-73.9); Platelet Count 276 T/CUMM (130-400); Red Blood Count 3.22 MC/CUMM (3.8-5.5); Red Cell Distribution Width 13.4 % (9.3-17.3); White Blood Count 7.9 T/CUMM (4-12)
[2021-03-12 05:20] LABS: Calcium 8.7 MG/DL (8.5-10.1); Osmolality,Calculated 271.2 MOS/KG (273-304)
[2021-03-12] MEDS: MAGNESIUM SULF RIDER 2 GM/50 ML PREMIX IV PRN (06:11)
[2021-03-12] MEDS: INSULIN LISPRO 100 UNIT/ML SUBCUT SCH ×4 (09:41→20:52)
[2021-03-12] MEDS: GABAPENTIN 400 MG CAPSULE PO SCH ×3 (09:45→20:51)
[2021-03-12] MEDS: FUROSEMIDE 40 MG/4 ML VIAL IV SCH ×3 (09:55→20:51)
[2021-03-12] MEDS: CHOLECALCIFEROL 1,000 UNIT TABLET PO SCH (09:55)
[2021-03-12] MEDS: ZINC GLUCONATE 50 MG TABLET PO SCH (09:56)
[2021-03-12] MEDS: MULTIVITAMIN (BEROCCA) TABLET PO SCH (09:57)
[2021-03-12] MEDS: MAGNESIUM OXIDE 400 MG TABLET PO SCH ×3 (09:57→20:51)
[2021-03-12] MEDS: PANTOPRAZOLE 40 MG TABLET PO SCH (09:58)
[2021-03-12] MEDS: SPIRONOLACTONE 25 MG TABLET PO SCH (09:59)
[2021-03-12] MEDS: MENTHOL/ZINC OXIDE OINT 71 GM JAR TOP SCH ×2 (10:01→20:52)
[2021-03-12] MEDS: SODIUM HYPOCHLORITE 0.25% IRRIG 473 ML BOTTLE TOP SCH ×2 (10:01→21:44)
[2021-03-12] MEDS: POTASSIUM CHLORIDE 20 MEQ TABLET PO PRN (10:01)
[2021-03-12] MEDS: ENOXAPARIN 40 MG/0.4 ML SYRINGE SUBCUT SCH (10:01)
[2021-03-12] MEDS: LINEZOLID INJ 600 MG/300 ML PREMIX IV SCH (14:51)
[2021-03-12] MEDS: SPIRONOLACTONE 100 MG TABLET PO SCH (20:51)
[2021-03-12] MEDS: ZALEPLON 5 MG CAPSULE PO PRN (23:44)
[2021-03-13] MEDS: LINEZOLID INJ 600 MG/300 ML PREMIX IV SCH ×2 (03:16→16:47)
[2021-03-13] MEDS: MEROPENEM 500 MG in SODIUM CHLORIDE 0.9% 100 ML IV SCH ×4 (04:39→23:18)
[2021-03-13 05:39] LABS: Basophils % 0.4 % (0.0-0.8); Eosinophils # 0.6 10*3/uL (0.0-0.87); Eosinophils % 7.8 % (0.00-10.9); Hematocrit 28.7 VOL% (42.0-52.0); Hemoglobin 9.6 GM/DL (14.0-18.0); Immature Granulocytes % 0.4 %; Immature Granulocytes Absolute 0.03 #; Lymphocytes # 0.9 10*3/uL (1.4-4.0); Lymphocytes % 12.8 % (21.2-54.2); Mean Corpuscular HGB Conc 33.4 GM/DL (32-36); Mean Corpuscular Volume 91.1 FL (87-102); Mean Platelet Volume 8.6 FL (9.6-12.0); Monocytes % 5.7 % (1.7-12.7); Neutrophils % 72.9 % (38.7-73.9); Platelet Count 259 T/CUMM (130-400); Red Blood Count 3.15 MC/CUMM (3.8-5.5); Red Cell Distribution Width 13.9 % (9.3-17.3); White Blood Count 7.2 T/CUMM (4-12)
[2021-03-13 05:59] LABS: Calcium 8.6 MG/DL (8.5-10.1); Osmolality,Calculated 272.2 MOS/KG (273-304); Potassium 4.1 MMOL/L (3.5-5.1)
[2021-03-13] MEDS: INSULIN LISPRO 100 UNIT/ML SUBCUT SCH ×4 (10:56→23:16)
[2021-03-13] MEDS: FUROSEMIDE 40 MG/4 ML VIAL IV SCH ×2 (10:56→16:19)
[2021-03-13] MEDS: CHOLECALCIFEROL 1,000 UNIT TABLET PO SCH (10:57)
[2021-03-13] MEDS: ENOXAPARIN 40 MG/0.4 ML SYRINGE SUBCUT SCH (10:57)
[2021-03-13] MEDS: MAGNESIUM OXIDE 400 MG TABLET PO SCH ×3 (10:59→23:14)
[2021-03-13] MEDS: guaiFENesin/DM ER 600-30 MG TABLET PO PRN (10:59)
[2021-03-13] MEDS: MULTIVITAMIN (BEROCCA) TABLET PO SCH (11:00)
[2021-03-13] MEDS: PANTOPRAZOLE 40 MG TABLET PO SCH (11:01)
[2021-03-13] MEDS: GABAPENTIN 400 MG CAPSULE PO SCH ×3 (11:02→23:14)
[2021-03-13] MEDS: ZINC GLUCONATE 50 MG TABLET PO SCH (11:02)
[2021-03-13] MEDS: SPIRONOLACTONE 100 MG TABLET PO SCH ×2 (11:02→23:14)
[2021-03-13] MEDS: MENTHOL/ZINC OXIDE OINT 71 GM JAR TOP SCH ×2 (12:00→23:15)
[2021-03-13] MEDS: SODIUM HYPOCHLORITE 0.25% IRRIG 473 ML BOTTLE TOP SCH ×2 (12:00→23:16)
[2021-03-13] MEDS: ZALEPLON 5 MG CAPSULE PO PRN (23:14)
[2021-03-14] MEDS: LINEZOLID INJ 600 MG/300 ML PREMIX IV SCH (03:44)
[2021-03-14 05:53] LABS: Basophils % 0.5 % (0.0-0.8); Eosinophils # 0.6 10*3/uL (0.0-0.87); Eosinophils % 7.6 % (0.00-10.9); Hemoglobin 9.7 GM/DL (14.0-18.0); Immature Granulocytes % 0.7 %; Immature Granulocytes Absolute 0.05 #; Lymphocytes % 12.7 % (21.2-54.2); Mean Corpuscular HGB Conc 32.3 GM/DL (32-36); Mean Corpuscular Volume 92.6 FL (87-102); Mean Platelet Volume 8.9 FL (9.6-12.0); Monocytes % 6.4 % (1.7-12.7); Neutrophils % 72.1 % (38.7-73.9); Platelet Count 281 T/CUMM (130-400); Red Blood Count 3.24 MC/CUMM (3.8-5.5); Red Cell Distribution Width 14.1 % (9.3-17.3); White Blood Count 7.7 T/CUMM (4-12)
[2021-03-14] MEDS: MEROPENEM 500 MG in SODIUM CHLORIDE 0.9% 100 ML IV SCH ×2 (05:57→14:47)
[2021-03-14 06:09] LABS: Calcium 8.7 MG/DL (8.5-10.1); Osmolality,Calculated 262.8 MOS/KG (273-304)
[2021-03-14] MEDS: INSULIN LISPRO 100 UNIT/ML SUBCUT SCH ×2 (08:46→14:00)
[2021-03-14] MEDS: CHOLECALCIFEROL 1,000 UNIT TABLET PO SCH (09:21)
[2021-03-14] MEDS: MAGNESIUM OXIDE 400 MG TABLET PO SCH ×2 (09:21→15:23)
[2021-03-14] MEDS: ZINC GLUCONATE 50 MG TABLET PO SCH (09:21)
[2021-03-14] MEDS: MULTIVITAMIN (BEROCCA) TABLET PO SCH (09:22)
[2021-03-14] MEDS: ENOXAPARIN 40 MG/0.4 ML SYRINGE SUBCUT SCH (09:22)
[2021-03-14] MEDS: SPIRONOLACTONE 100 MG TABLET PO SCH (09:22)
[2021-03-14] MEDS: GABAPENTIN 400 MG CAPSULE PO SCH ×2 (09:22→15:23)
[2021-03-14] MEDS: PANTOPRAZOLE 40 MG TABLET PO SCH (09:29)
[2021-03-14] MEDS: FUROSEMIDE 40 MG/4 ML VIAL IV SCH (09:57)
[2021-03-14] MEDS: MENTHOL/ZINC OXIDE OINT 71 GM JAR TOP SCH (09:58)
[2021-03-14] MEDS: SODIUM HYPOCHLORITE 0.25% IRRIG 473 ML BOTTLE TOP SCH (11:56)
[2021-03-14 15:35] VITALS: BP 113/75
[2021-03-14] MEDS ORDERED: FUROSEMIDE 40 MG TABLET PO SCH (16:00)
[2021-03-14] MEDS ORDERED: LINEZOLID 600 MG TABLET PO SCH (21:00)
[2021-03-16 11:27] LABS: 25-Hydroxy D Total 30 ng/mL; 25-Hydroxy D2 < 4.0 ng/mL; 25-Hydroxy D3 30 ng/mL
[2021-03-16 11:27] LABS: 25-Hydroxy D Total 27 ng/mL; 25-Hydroxy D2 < 4.0 ng/mL; 25-Hydroxy D3 27 ng/mL
== END 2021-03-14 17:41 | DRG 423 ==
LOC: EDUNIT# → EDBD → N.ED 21:27 → N.EDINP 22:47 → SUATTDRO 22:47 → N.EDINP 02-26 00:33 → N.TELEN 02-26 01:07
PROVIDERS: ADMIT Internal Medicine Geriatric Medicine; ATTEND Hospitalist